=== PATIENT | male | born 1960 | race Caucasian/White ===

== ENCOUNTER 2020-08-16 05:30 | Day surgery (SDC) | payer OTHER ==
[~2020-08-16] VITALS: Ht 177.8 cm; Wt 112.7 kg
[2020-08-16] VITALS (7 sets, daily range): BP systolic 135–142; BP diastolic 72–90; PULSE 57–67; TEMP 97.3–97.8
[2020-08-16] MEDS ORDERED: PERCOCET 325 MG1 TA2 PO (07:02)
[2020-08-16] MEDS ORDERED: EPA FISH OIL1 SGL PO (07:02)
[2020-08-16] MEDS ORDERED: ASPIRIN 81M81 MG/TA2 PO (07:02)
[2020-08-16] MEDS ORDERED: COZAAR100 MG PO (07:03)
[2020-08-16] MEDS ORDERED: THE MEDICINE S200 M2 PO (07:03)
[2020-08-16] MEDS ORDERED: PRAVACHOL 40MG40 MG PO (07:04)
--- NOTE | 2020-08-16 08:50 | NUR ---
Patient returns to room 8 ambulatory and denies pain or nausea. Drinking coffee and water. Temp 97.9 and room sats 96% on 2L per nasal cannula. IV fluids infusing and site is free of redness.
--- NOTE | 2020-08-16 09:05 | NUR ---
Oxygen removed and assisted up to the bathroom. Able to void pink tinged urine and returns to room. Gait steady. IV to INT. Room air sats 93%.
--- NOTE | 2020-08-16 09:20 | NUR ---
Eating muffin and sipping on water.
--- NOTE | 2020-08-16 09:35 | NUR ---
Continues to deny pain or nausea. Offers no complaints.
--- NOTE | 2020-08-16 10:07 | NUR ---
Dismissal instructions given and signed. Voices understanding of these. Provided follow up appointment date and time.
--- NOTE | 2020-08-16 10:10 | NUR ---
Patient dismissed to home driven by spouse and taken to the front door per wheelchair and assisted into vehicle.
== END 2020-08-16 10:10 | disposition home or self-care (01) ==
LOC: SDCO 05:30
DX: N20.0 Calculus of kidney (principal); I10 Essential (primary) hypertension; Z96.651 Presence of right artificial knee joint; M19.90 Unspecified osteoarthritis, unspecified site
CPT/HCPCS: C1769; C2617; J0690; J1100; J1170; J2405; J2704; J3010; J7120; Q9967